=== PATIENT | male | born 1960 | race African-American/Black ===

== ENCOUNTER 2016-05-24 17:26 | Emergency (ER) | payer SELFPAY ==
--- NOTE | 2016-05-24 18:10 | EDM.PDOC ---
ED HPI LOWER BACK PAIN/INJURY - General Chief Complaint: Back Pain or Injury Stated Complaint: BACK AND ANKLE PAIN Time Seen by Provider: 05/24/16 17:50 Source of Information: Reports: Patient History Limitations: Reports: No limitations - History of Present Illness INITIAL COMMENTS - FREE TEXT/NARRATIVE: Patient presents today per EMS with complaints of back pain. States he has been having more back discomfort as he has to do repetitive movements at his job at the [employer]. States his job entails many different details but has been on the same line for 3 days. Feels all the lifting and moving is increasing his back pain and "needs a change from it". He states he is having mild ankle discomfort but "that isn't really any issue right now". He feels the back pain could progress to become a bigger problem if he continues to do the same thing day after day. He feels that they should vary the duties for each person on the line. Timing/Duration: Reports: Hour(s): Location: Reports: lower Quality: Reports: Ache Severity: mild Place of Occurrence: work Worsens with: Reports: Movement Context: Reports: lifting, bending Associated Symptoms: Denies: Difficulty walking, Paresthesias, Weakness - Related Data Allergies/ADRs: Allergies Allergy/AdvReac Type Severity Reaction Status Date / Time No Known Allergies Allergy Verified 05/24/16 17:37 Home Meds: Home Meds . [Unable to Verify Home Med List] 05/24/16 [History] Past Medical History Cardiovascular History: Reports: Hypertension Musculoskeletal History: Reports: Back pain, chronic - Past Surgical History Musculoskeletal Surgical History: Reports: Arthroscopic knee Social & Family History - Tobacco Use Smoking Status *Q: Never Smoker - Alcohol Use Days Per Week of Alcohol Use: 2 Number of Drinks Per Day: 4 Total Drinks Per Week: 8 - Recreational Drug Use Recreational Drug Use: No ED ROS GENERAL - Review of Systems Review Of Systems: See Below Constitutional: Denies: fever, chills, malaise, weakness HEENT: Reports: No symptoms Respiratory: Reports: no symptoms Cardiovascular: Reports: No symptoms GI/Abdominal: Reports: No symptoms Musculoskeletal: Reports: back pain, joint pain Skin: Reports: no symptoms Neurological: Denies: difficulty walking, weakness, gait disturbance Psychiatric: Reports: No symptoms ED EXAM,LOWER BACK PAIN/INJURY - Physical Exam Exam: See Below Exam Limited By: No limitations General Appearance: alert, WD/WN, no apparent distress Neck: normal inspection, supple, non-tender, full range of motion Respiratory/Chest: no respiratory distress, lungs clear, normal breath sounds Cardiovascular: normal peripheral pulses, regular rate, rhythm Back Exam: normal inspection, full range of motion. No: muscle spasm, paraspinal tenderness, vertebral tenderness Neurological: alert, normal mood/affect, normal dorsiflexion Psychiatric: normal affect, normal mood Skin Exam: Warm, Dry Course - Vital Signs Last Recorded V/S: Last Vital Signs Temp 99.1 F 05/24/16 17:38 Pulse 79 05/24/16 17:38 Resp 18 05/24/16 17:38 BP 145/94 H 05/24/16 17:38 Pulse Ox 97 05/24/16 17:38 Departure - Departure Time of Disposition: 18:11 Disposition: Home, Self-Care 01 Condition: good Clinical Impression: Low back pain Forms: ED Department Discharge Additional Instructions: 1. Ice or heat for symptom relief 2. Ibuprofen 600 mg every 6 hours for pain 3. Avoid repetitive lifting or trauma 4. Follow up if any ongoing concerns.
== END 2016-05-24 18:30 | disposition home or self-care (01) ==
LOC: CC.ED 17:26
CPT/HCPCS: 99284